=== PATIENT | male | born 1935 | race Caucasian/White ===

== ENCOUNTER → 2020-06-12 09:30 | Outpatient (CLI) | payer MEDICARE, SELFPAY | PROVIDERS: Visit Provider Specialist | DX: N39.0 Urinary tract infection, site not specified (principal); R97.20 Elevated prostate specific antigen [PSA]; R33.9 Retention of urine, unspecified; N52.9 Male erectile dysfunction, unspecified | CPT/HCPCS: 52000; 76872; 81002; 87077; 87086; 87186 ==

== ENCOUNTER → 2022-03-03 11:32 | Outpatient (ROUT) | payer MEDICARE, SELFPAY ==
[2022-03-03 11:39] LABS: Add Manual Diff / Slide Review NO; Basophils Absolute Auto 100 /uL (0-100); Basophils Percent Auto 1.2 % (0-2); Eosinophils Absolute Auto 600 /uL (0-450); Eosinophils Percent Auto 11.9 % (2-4); Hematocrit 23.3 % (41-53); Hemoglobin 7.8 g/dL (13.5-17.5); Lymphocytes Absolute Auto 600 /uL (1100-4500); Lymphocytes Percent Auto 12.9 % (25-40); Mean Corpuscular HGB Conc 33.5 % (30-36); Mean Corpuscular Hemoglobin 28.7 PG (26-34); Mean Corpuscular Volume 85.8 fL (80-100); Monocytes Absolute Auto 400 /uL (0-900); Monocytes Percent Auto 7.6 % (3-14); Neutrophils Absolute Auto 3300 /uL (1500-7000); Neutrophils Percent Auto 66.4 % (50-75); Platelet Count 285 X10^3/uL (150-400); Red Blood Cell Count 2.72 X10^6/uL (4.5-5.9); Red Cell Distribution Width 19.2 % (11.6-14.8)
[2022-03-03 11:49] LABS: Alanine Aminotransferase 10 IU/L (<50); Albumin 2.5 g/dL (3.5-5.0); Alkaline Phosphatase 100 U/L (38-126); Aspartate Aminotransferase 26 IU/L (17-59); BUN Creatinine Ratio 12.1 (6-22); Bilirubin Total 0.3 mg/dL (0.2-1.3); Blood Urea Nitrogen 17 mg/dL (9-20); Calcium 7.9 mg/dL (8.4-10.2); Carbon Dioxide 25 mmol/L (22-32); Chloride 110 mmol/L (98-107); Estimated Glomerular Filt Rate 49 mL/min (>60); Globulin 2.6 g/dL (1.7-4.1); Glucose 113 mg/dL (80-110); HEMOLYSIS < 15 (0-50); Potassium 3.2 mmol/L (3.4-5.1); Sodium 139 mmol/L (137-145); Total Protein 5.1 g/dL (6.3-8.2)
== END ==
PROVIDERS: Visit Provider Internal Medicine Infectious Disease
DX: N39.0 Urinary tract infection, site not specified (principal); R31.0 Gross hematuria
CPT/HCPCS: 80053; 85025

== ENCOUNTER → 2022-03-20 16:25 | Outpatient (ROUT) | payer MEDICARE, SELFPAY ==
[2022-03-20 16:45] LABS: Add Manual Diff / Slide Review NO; Basophils Absolute Auto 100 /uL (0-100); Basophils Percent Auto 1.3 % (0-2); Eosinophils Absolute Auto 400 /uL (0-450); Eosinophils Percent Auto 7.9 % (2-4); Hematocrit 19.6 % (41-53); Lymphocytes Absolute Auto 500 /uL (1100-4500); Lymphocytes Percent Auto 10.3 % (25-40); Monocytes Absolute Auto 500 /uL (0-900); Monocytes Percent Auto 10.1 % (3-14); Neutrophils Absolute Auto 3200 /uL (1500-7000); Neutrophils Percent Auto 70.4 % (50-75); Platelet Count 239 X10^3/uL (150-400); Red Blood Cell Count 2.22 X10^6/uL (4.5-5.9); Red Cell Distribution Width 19.4 % (11.6-14.8); White Blood Cell Count 4.6 X10^3/uL (4.5-11.0)
[2022-03-20 16:50] LABS: Hemoglobin 6.5 g/dL (13.5-17.5)
== END ==
PROVIDERS: Visit Provider Physician Assistant
DX: D64.9 Anemia, unspecified (principal)
CPT/HCPCS: 85025

== ENCOUNTER 2022-03-20 17:20 | Emergency (ER) | payer MEDICARE, SELFPAY ==
[2022-03-20] VITALS (23 sets, daily range): BP systolic 117–178; BP diastolic 56–80; PULSE 59–62; RESP 14–26; TEMP 36.3–37.2; O2SAT 95–99; BMI 22.6
[2022-03-20 18:03] LABS: Add Manual Diff / Slide Review NO; Basophils Absolute Auto 0 /uL (0-100); Eosinophils Absolute Auto 400 /uL (0-450); Eosinophils Percent Auto 8.8 % (2-4); Hematocrit 21.5 % (41-53); Lymphocytes Absolute Auto 700 /uL (1100-4500); Lymphocytes Percent Auto 13.5 % (25-40); Mean Corpuscular HGB Conc 32.8 % (30-36); Mean Corpuscular Hemoglobin 28.8 PG (26-34); Mean Corpuscular Volume 87.6 fL (80-100); Monocytes Absolute Auto 500 /uL (0-900); Monocytes Percent Auto 9.1 % (3-14); Neutrophils Absolute Auto 3400 /uL (1500-7000); Neutrophils Percent Auto 67.6 % (50-75); Platelet Count 283 X10^3/uL (150-400); Red Blood Cell Count 2.45 X10^6/uL (4.5-5.9); Red Cell Distribution Width 19.6 % (11.6-14.8)
[2022-03-20 18:19] LABS: Alanine Aminotransferase 17 IU/L (<50); Albumin 3.1 g/dL (3.5-5.0); Alkaline Phosphatase 127 U/L (38-126); Aspartate Aminotransferase 35 IU/L (17-59); BUN Creatinine Ratio 12.1 (6-22); Bilirubin Total 0.6 mg/dL (0.2-1.3); Blood Urea Nitrogen 19 mg/dL (9-20); Carbon Dioxide 25 mmol/L (22-32); Chloride 104 mmol/L (98-107); Estimated Glomerular Filt Rate 43 mL/min (>60); Glucose 97 mg/dL (80-110); HEMOLYSIS < 15 (0-50); Lipase 141 U/L (23-300); Potassium 3.4 mmol/L (3.4-5.1); Sodium 138 mmol/L (137-145); Total Protein 6.1 g/dL (6.3-8.2)
--- NOTE | 2022-03-20 18:42 | ED_ITS ---
HPI - Recheck/Abnormal Lab/Rx General Chief Complaint: Recheck/Abnormal Lab/Rx Stated Complaint: Ref to ER by [facility] Time Seen by Provider: 03/20/22 18:15 Source: patient and family Mode of arrival: Ambulatory Limitations: no limitations History of Present Illness HPI narrative: Patient is an 86-year-old male. Was sent to the emergency department by a his living facility for concerns of anemia. He recently was in another facility where he was admitted for weakness and hypotension and tachycardia. Patient states that he was told that he had low blood counts. He states he was given a blood transfusion in the emergency department and admitted to the hospital for observation. He has an indwelling Key catheter he and stents in place. He did have blood in his urine at that time. He stated that that is what he was told was most likely the source of his anemia. He states that the blood in his urine has stopped. He has an appointment with Urology next week. He stated that he is not having any black colored stools or dark-colored stools or blood in his stool. Denies any vomiting. He was on anticoagulation however he has stopped this after his last hospital visit. He does report some abdominal discomfort. Related Data Home Medications Medication Instructions Recorded Confirmed aspirin 81 mg tablet,delayed 81 mg PO DAILY 06/08/20 06/12/20 release (Adult Aspirin Regimen) atorvastatin 40 mg tablet 40 mg PO DAILY 06/08/20 06/12/20 finasteride 5 mg tablet 5 mg PO DAILY 06/08/20 06/12/20 tamsulosin 0.4 mg capsule 0.4 mg PO DAILY 06/08/20 06/12/20 warfarin 5 mg tablet 5 mg PO DAILY 06/08/20 06/12/20 amiodarone 200 mg tablet 200 mg PO DAILY 06/21/20 furosemide 20 mg tablet 10 mg PO QAM 06/21/20 lisinopril 5 mg tablet 5 mg PO DAILY 06/21/20 metoprolol succinate 50 mg 50 mg PO BID 06/21/20 tablet,extended release 24 hr potassium chloride 10 mEq 10 meq PO DAILY 06/21/20 capsule,extended release Previous Rx's Medication Instructions Recorded cephalexin 500 mg capsule (Keflex) 500 mg PO TID #21 cap 06/14/20 Allergies Allergy/AdvReac Type Severity Reaction Status Date / Time No Known Drug Allergies Allergy Unverified 06/12/20 09:17 Review of Systems Constitutional Constitutional: Denies fever(s) Cardiovascular Cardiovascular: Denies chest pain, Reports rapid heart rate and Denies dyspnea Respiratory Respiratory: Denies cough and Denies dyspnea Gastrointestinal Gastrointestinal: Reports abdominal pain, Denies melena, Denies hematochezia, Denies diarrhea, Denies nausea and Denies vomiting Genitourinary Genitourinary: Denies hematuria Integumentary/Breasts Skin/Breast: Reports system reviewed and no additional complaints, except as documented Neurologic Neurologic: Reports system reviewed and no additional complaints, except as documented Hematologic/Lymphatic On Anticoagulants: No Patient History Medical History Congestive heart failure (CHF) Elevated PSA Elevated PSA 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) Hematuria Retention of urine Urinary retention Surgical History History of appendectomy Hx of total adrenalectomy Social History Smoking Status: Never smoker Smoking Status: Never smoker Exam Initial Vital Signs Initial Vital Signs: Vital Signs Temperature 97.4 F L 03/20/22 17:24 Pulse Rate 62 03/20/22 17:24 Respiratory Rate 18 03/20/22 17:24 Blood Pressure 126/80 03/20/22 17:24 Pulse Oximetry 99 03/20/22 17:24 Const General: cooperative and comfortable HENMT Head: normal to inspection and normocephalic Resp Effort & Inspection: normal respiratory effort Auscultation: clear to auscultation bilaterally Cardio Rate: regular rate Rhythm: regular rhythm GI Inspection: normal to inspection Palpation: soft, No firm and No tender Rectal Exam: heme negative stool Other: Urinary catheter placed. Skin Other: Patient does have some superficial skin breakdown in his buttocks area most likely from spending an extended amount of time sitting. There was no signs of infection. Neuro General: patient alert, patient awake and moves all extremities Extrem General: No edema Psych Appearance: grossly normal and well kempt Scores GCS Carolyn coma scale eye opening: Spontaneous [place] coma scale verbal response: Orientated [place] coma scale motor response: Obey commands Carolyn coma scale total score: 15 Course Orders Ordered: ED Orders 03/21/22 00:36 Hemoglobin and Hematocrit Stat Discontinued Medications Acetaminophen (Acetaminophen 325 Mg Tablet) 650 mg PO NOW ONE Stop: 03/21/22 01:25 Last Admin: 03/21/22 01:28 Dose: 650 mg Documented by: WILLIAN Vital Signs Vital signs: Vital Signs - 8 hr 03/20/22 19:30 03/20/22 20:00 03/20/22 20:13 Temperature Pulse Rate 60 59 L 60 Respiratory Rate 19 20 26 H Blood Pressure 128/60 139/63 117/57 L Pulse Oximetry 97 97 97 03/20/22 20:15 03/20/22 20:30 03/20/22 20:36 Temperature 98.9 F 98.3 F Pulse Rate 60 60 60 Respiratory Rate 21 21 22 Blood Pressure 117/57 L 138/64 126/59 L Pulse Oximetry 96 95 03/20/22 21:00 03/20/22 21:01 03/20/22 21:30 Temperature Pulse Rate 62 62 60 Respiratory Rate 16 20 18 Blood Pressure 151/67 H Pulse Oximetry 99 98 97 03/20/22 21:31 03/20/22 22:00 03/20/22 22:30 Temperature Pulse Rate 60 60 60 Respiratory Rate 19 18 19 Blood Pressure 142/63 H 178/71 H Pulse Oximetry 97 98 98 03/20/22 22:31 03/20/22 22:32 03/20/22 22:54 Temperature 98.4 F Pulse Rate 60 60 60 Respiratory Rate 19 16 19 Blood Pressure 165/70 H 165/70 H 165/67 H Pulse Oximetry 98 97 03/20/22 22:55 03/20/22 23:00 03/20/22 23:30 Temperature 98.1 F Pulse Rate 60 60 60 Respiratory Rate 14 20 21 Blood Pressure 165/67 H 155/70 H 143/66 H Pulse Oximetry 96 96 MDM - Recheck/Abnormal Lab/Rx Medical Records Attestation: I reviewed the patient's medical records. Lab Data Attestation: I reviewed the patient's lab results. Result diagrams: 03/21/22 00:36 03/20/22 17:28 Labs: Lab Results 03/20/22 03/20/22 03/20/22 Range/Units 17:28 17:28 17:28 WBC 5.0 (4.5-11.0) X10^3/uL RBC 2.45 L (4.5-5.9) X10^6/uL Hgb 7.0 L (13.5-17.5) g/dL Hct 21.5 L (41-53) % MCV 87.6 (80-100) fL MCH 28.8 (26-34) PG MCHC 32.8 (30-36) % RDW 19.6 H (11.6-14.8) % Plt Count 283 (150-400) X10^3/uL Neut % (Auto) 67.6 (50-75) % Lymph % (Auto) 13.5 L (25-40) % [place] % (Auto) 9.1 (3-14) % Eos % (Auto) 8.8 H (2-4) % Baso % (Auto) 1.0 (0-2) % Neut # (Auto) 3400 (3312-4567) /uL Lymph # (Auto) 700 L (0866-3344) /uL [place] # (Auto) 500 (0-900) /uL Eos # (Auto) 400 (0-450) /uL Baso # (Auto) 0 (0-100) /uL Sodium 138 (137-145) mmol/L Potassium 3.4 (3.4-5.1) mmol/L Chloride 104 (98-107) mmol/L Carbon Dioxide 25 (22-32) mmol/L BUN 19 (9-20) mg/dL Creatinine 1.57 H (0.66-1.25) mg/dL Estimated GFR 43 L (>60) mL/min BUN/Creatinine Ratio 12.1 (6-22) Glucose 97 (80-110) mg/dL Calcium 8.0 L (8.4-10.2) mg/dL Total Bilirubin 0.6 (0.2-1.3) mg/dL AST 35 (17-59) IU/L ALT 17 (<50) IU/L Alkaline Phosphatase 127 H (38-126) U/L Total Protein 6.1 L (6.3-8.2) g/dL Albumin 3.1 L (3.5-5.0) g/dL Globulin 3.0 (1.7-4.1) g/dL Albumin/Globulin Ratio 1.0 (1.0-2.8) Lipase 141 (23-300) U/L Blood Type Cancelled Antibody Screen Crossmatch 03/20/22 03/21/22 Range/Units 17:59 00:36 WBC (4.5-11.0) X10^3/uL RBC (4.5-5.9) X10^6/uL Hgb 8.3 L (13.5-17.5) g/dL Hct 24.7 L (41-53) % MCV (80-100) fL MCH (26-34) PG MCHC (30-36) % RDW (11.6-14.8) % Plt Count (150-400) X10^3/uL Neut % (Auto) (50-75) % Lymph % (Auto) (25-40) % [place] % (Auto) (3-14) % Eos % (Auto) (2-4) % Baso % (Auto) (0-2) % Neut # (Auto) (0183-1457) /uL Lymph # (Auto) (7037-0288) /uL [place] # (Auto) (0-900) /uL Eos # (Auto) (0-450) /uL Baso # (Auto) (0-100) /uL Sodium (137-145) mmol/L Potassium (3.4-5.1) mmol/L Chloride (98-107) mmol/L Carbon Dioxide (22-32) mmol/L BUN (9-20) mg/dL Creatinine (0.66-1.25) mg/dL Estimated GFR (>60) mL/min BUN/Creatinine Ratio (6-22) Glucose (80-110) mg/dL Calcium (8.4-10.2) mg/dL Total Bilirubin (0.2-1.3) mg/dL AST (17-59) IU/L ALT (<50) IU/L Alkaline Phosphatase (38-126) U/L Total Protein (6.3-8.2) g/dL Albumin (3.5-5.0) g/dL Globulin (1.7-4.1) g/dL Albumin/Globulin Ratio (1.0-2.8) Lipase (23-300) U/L Blood Type O Positive Antibody Screen Negative Crossmatch See Detail ECG Data Attestation: I personally reviewed and interpreted this ECG as follows: Interpretation: Atrially paced Ventricular rate is 60 Normal QRS Normal QTC MDM Narrative Medical decision making narrative: Who I was able to review the patient's record where he was admitted to the hospital and subsequently discharged on March 07, 2022. He was admitted to [facility]. According to the discharge summary patient was admitted for 3 days. He had a pre renal CECI. He was admitted for hypotension. He was started on midodrine. He also is having hematuria. He was discharged home. There is no mention of having received a blood transfusion however the patient states that was done in the emergency department and not as an inpatient. Here today patient's initial H&H does show anemia. According to the discharge summary was discharged with a hemoglobin of 8.6 and hematocrit of 26.5. Today his Hemoccult is negative. He has a known urinary tract infection is on antibiotics and has an indwelling Key catheter so urinalysis was not obtained. He has no other source of his bleeding. We did discuss possibility of it being a GI bleed however his Hemoccult is negative. It could potentially be his urinary stents for which she is going to see Urology for next week. I do feel the patient would benefit from a blood transfusion. He expressed understanding of the risks and benefits. He has had a blood transfusion in the past and has no questions. His transfuse 2 units of packed red blood cells here in the emergency department. His blood pressure improved. He is paced so his heart r ate did not change. He did feel better afterwards. No indication for admission to the hospital. Informed him that he does need to keep all of his scheduled medical appointments and should continue all of his current medications as directed. He was given return precautions. He expressed understanding agreement. Discharge Plan Departure Patient Disposition: Home Clinical Impression: Anemia Instructions: Blood Transfusion Activity Restrictions/Additional Instructions: I do recommend that you keep all of your scheduled medical appointments to include the urology visit next week. Contact your primary provider for a follow-up. Return to the emergency department for any new or worsening symptoms. Prescriptions: No Action finasteride 5 mg tablet 5 mg PO DAILY 0RF tamsulosin 0.4 mg capsule 0.4 mg PO DAILY 0RF warfarin 5 mg tablet 5 mg PO DAILY 0RF atorvastatin 40 mg tablet 40 mg PO DAILY 0RF aspirin [Adult Aspirin Regimen] 81 mg tablet,delayed release (DR/EC) 81 mg PO DAILY 0RF cephalexin [Keflex] 500 mg capsule 500 mg PO TID Qty: 21 0RF amiodarone 200 mg tablet 200 mg PO DAILY 0RF Rx Instructions: patient is on this as a reported medication from other doctor furosemide 20 mg tablet 10 mg PO QAM 0RF lisinopril 5 mg tablet 5 mg PO DAILY 0RF metoprolol succinate 50 mg tablet extended release 24 hr 50 mg PO BID 0RF potassium chloride 10 mEq capsule, extended release 10 meq PO DAILY 0RF
--- NOTE | 2022-03-20 20:41 | PC.NURSE ---
spoke with , Vs stable at 15min after start of transfusion. bump rate up to 300 to be infused over 1 hour.
--- NOTE | 2022-03-20 22:00 | PC.NURSE ---
Addendum entered by Sherrie Cesar R.N. 03/20/22 22:01: lungs sounds clear bilaterally, pt states he does not feel any different from previously except he is much colder. warm blankets applied. Original Note: spoke with Dr. Durán, first unit has been transfused. he verbalized continuing of the second unit and then reassess after that.
[2022-03-21 00:59] LABS: Hemoglobin 8.3 g/dL (13.5-17.5)
[2022-03-21 01:00] LABS: Hematocrit 24.7 % (41-53)
[2022-03-21] MEDS: ACETAMINOPHEN 325 MG TABLET 650 MG PO (01:28)
--- NOTE | 2022-03-21 01:58 | PC.NURSE ---
called report to RN at [facility].
== END 2022-03-21 01:51 | disposition home or self-care (01) ==
PROVIDERS: Emergency Medicine; Emergency Provider Emergency Medicine
DX: D64.9 Anemia, unspecified (principal); R10.9 Unspecified abdominal pain; R00.0 Tachycardia, unspecified
CPT/HCPCS: 36415; 36430; 80053; 83690; 85014; 85018; 85025; 86850; 86900; 86901; 93005; 93010; 99284; P9016